=== PATIENT | male | born 1995 | race Caucasian/White ===

== ENCOUNTER 2018-03-22 23:21 | Emergency (ER) | payer OTHER ==
--- NOTE | 2018-03-22 23:33 | ED Physician Documentation ---
Low Back Pain - HISTORIAN Historian: patient - HPI Stated Complaint: low back pain Chief Complaint: Low Back Pain/ Injury History: back pain Onset: minutes (30) Duration: gone now Recent Injury: No Context: bending Where: other ([place]) Severity: mild Quality: other (pain with pressure per his report ) Associated Symptoms: sweating, numbness (in his arms initally ). denies: fever, chills, constipation, incontinence, nausea, vomiting, problems urinating, difficulty walking, light-headedness, dizziness Worsened By:: nothing Relieved By: other (resting ) Further Comments: yes (He states he went to sit on the toliet and had a pain in his lower back he felt sweaty and had numbness in his hands - he states the pain was "just pain with touch" he states he had intially numbness in hands. 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 The disc and vertebral body height are normal. There is no fracture spondylolysis or spondylolisthesis. Impression: Negative lumbar spine Electronically signed on Mar 23, 2018 12:31:36 AM CDT by: Lance Landeros - Orders Orders: ED Orders Category Date Time Status LUMBAR SPINE XR 2 OR 3 VIEWS [L SPINE 2 OR 3 VIEWS] [ Exams 03/22/18 Completed RAD] Stat Low Back Pain/Injury - Physical Exam General Appearance: no acute distress, alert EENT: eye inspection normal Neck: non-tender Resp/CVS: chest non-tender, breath sounds nml, heart sounds nml Abdomen: non-tender, no organomegaly Back: non-tender, painless ROM Rectal/Genital: nml ext.inspection Neuro/Psych: oriented x3, motor nml Skin: warm/dry, normal color Extremities: non-tender Discharge Clincal Impression: Low back pain Qualifiers: Chronicity: acute Back pain laterality: midline Sciatica presence: without sciatica Qualified Code(s): M54.5 - Low back pain Referrals: Primary Doctor,No [Primary Care Provider] - 2 Days Comments: 1. OTC meds as allowed in [facility] for back pain 2. Stretch daily 3. Follow up with PCP in 2-4 days if no improvement 4. Return to ER for any concerns Condition: Stable Disposition: 01 HOME, SELF-CARE Decision to Admit: NO Date of Decison to Admit: 03/23/18 Decision Time: 00:46
--- NOTE | 2018-03-23 00:35 | Diagnostic Imaging Report ---
ASHELY SILVERIO [facility] [id number] [facility] [address] [place], [place]. [address] Report Submission Date: Mar 23, 2018 12:31:36 AM CDT Patient Study Name: SHARON RUIZ Date: Mar 22, 2018 11:58:12 PM CDT Modality Type: DX Gender: M Description: SPINE : 89 Institution: [facility] Physician: ASHELY SILVERIO Lumbar spine Clinical history pain Technique AP lateral coned down Findings: There are 5 lumbar vertebra. The disc and vertebral body height are normal. There is no fracture spondylolysis or spondylolisthesis. Impression: Negative lumbar spine Electronically signed on Mar 23, 2018 12:31:36 AM CDT by: Lance MANSFIELD
[2018-03-23 00:57] VITALS: BP 124/69
== END 2018-03-23 00:51 | disposition home or self-care (01) ==
LOC: ED 23:21
DX: M54.5 Low back pain (principal)
CPT/HCPCS: 72100